=== PATIENT | male | born 1990 | race Caucasian/White ===

== ENCOUNTER 2022-08-06 20:01 | Emergency (ER) | payer BC, MEDICAID, SELFPAY ==
[2022-08-06 20:27] VITALS: PULSE 102; RESP 18; TEMP 36.4; O2SAT 97; BMI 21.4
--- NOTE | 2022-08-06 21:15 | CTR_ITS ---
PROCEDURE INFORMATION: Exam: CT Abdomen And Pelvis With Contrast Exam date and time: 08/06/2022 9:30 PM Age: 32 years old Clinical indication: Injury or trauma; Other: Blunt trauma; Prior surgery; Surgery type: Appy; Patient HX: Sustained blow to llq from a lead pipe. TECHNIQUE: Imaging protocol: Computed tomography of the abdomen and pelvis with contrast. Radiation optimization: All CT scans at this facility use at least one of these dose optimization techniques: automated exposure control; mA and/or kV adjustment per patient size (includes targeted exams where dose is matched to clinical indication); or iterative reconstruction. Contrast material: OMNI 350; Contrast volume: 100 ml; Contrast route: INTRAVENOUS (IV); Other protocol: This patient has received 0 known CTs and 0 known cardiac nuclear medicine studies in the 12 months prior to the current study. COMPARISON: No relevant prior studies available. RADIATION DOSE METRICS: Total DLP (mGy-cm): 356.73 FINDINGS: Lungs: Right lower lobe atelectasis. Liver: Normal. No mass. Gallbladder and bile ducts: Normal. No calcified stones. No ductal dilation. Pancreas: Normal. No ductal dilation. Spleen: Normal. No splenomegaly. Adrenal glands: Normal. No mass. Kidneys and ureters: Left kidney cyst, negative for follow-up advised. Stomach and bowel: Prominent fluid in the small bowel without dilation suggestive of an enteritis. Appendix: No evidence of appendicitis. Intraperitoneal space: Unremarkable. No free air. No significant fluid collection. Vasculature: Unremarkable. No abdominal aortic aneurysm. Lymph nodes: Unremarkable. No enlarged lymph nodes. Urinary bladder: Unremarkable as visualized. Reproductive: Unremarkable as visualized. Bones/joints: Unremarkable. No acute fracture. Soft tissues: Unremarkable. CT/CT abdomen pelvis w con* [id number] IMPRESSION: 1. Negative for traumatic injury to the abdomen or pelvis. 2. Right lower lobe atelectasis. 3. Prominent fluid in the small bowel without dilation suggestive of an enteritis. 4. Left kidney cyst, negative for follow-up advised. COMMENTS: Consistent with the [employer]'s Incidental Findings Committee white paper (J Am Emigdio Radiol 2018): Any incidental renal lesion less than 1 cm or classified as too small to characterize, or any incidental cystic renal lesion characterized as simple-appearing, is likely benign. No follow-up imaging is recommended for these lesions per consensus recommendations based on imaging criteria.
[2022-08-06] MEDS: morphine 4 mg/mL SDV 1 mL IVP (21:24)
[2022-08-06] MEDS: ondansetron 2 mg/ML SDV 2 mL 4 MG IVP (21:24)
--- NOTE | 2022-08-06 21:27 | ED_ITS ---
HPI - Abdominal Pain General: Chief Complaint: Abdominal Pain Stated Complaint: Injury ABD Pain Time Seen by Provider: 08/06/22 20:57 Source: patient Mode of arrival: ambulatory Limitations: no limitations History of Present Illness: 32-year-old male who states that at work today he was struck in the abdomen with a lead pipe around noon he states he had worsening lower abdominal pain very tender to touch states pain is currently an 8 out of 10 denies any vomiting denies any other injuries states is worse with movement with palpation improved with rest. Associated Symptoms: Denies chills, dysuria and fever(s) Review of Systems Const: Denies: fever(s), chills, body aches or change in appetite Eyes: Denies: blurry vision or eye discomfort ENMT: Denies: throat pain or dental pain Card: Denies: chest pain Resp: Denies: dyspnea GI: Reports: abdominal pain : Denies: dysuria Musc: Denies: neck pain or back pain Skin/Breast: Denies: rash Neuro: Denies: headache(s) Psych: Denies: depression Dago/Lymph: Denies: easy bruising All/Imm: Denies: urticaria PFSH ED PFSH: Medical History (Updated 08/06/22 @ 22:02 by Alanna Marie MD) No pertinent past medical history Social History (Updated 08/06/22 @ 21:28 by Alanna Marie MD) Substance/Drug Use: never Physical Exam Const: COMMON NORMALS: no acute distress, patient oriented x3 and healthy jose earing HENMT: COMMON NORMALS: normocephalic and atraumatic HEAD & SCALP: normocephalic and atraumatic Eye: COMMON NORMALS: Equal, round and reactive pupils present and EOMs intact bilaterally PUPIL: Yes Equal, round and reactive pupils present Neck/C-Spine: COMMON NORMALS: full ROM and supple Chest: COMMONS NORMALS: normal inspection of the chest and normal palpation of entire chest wall Resp: COMMON NORMALS: normal respiratory effort, No retractions, No use of accessory muscles and clear to auscultation bilaterally AUSCULTATION: clear to auscultation bilaterally Cardio: COMMON NORMALS: regular rate, regular rhythm and No murmurs present (Cardio) RATE: regular rate RHYTHM: regular rhythm GI: COMMON NORMALS: Normal to inspection, nondistended, normoactive bowel sounds present, Soft to palpation and no masses PALPATION: Yes Soft to palpation OTHER: lower abdominal tenderness Extremity: COMMON NORMALS: normal to inspection and full ROM Neuro: COMMON NORMALS: patient oriented x3, moves all extremities and no focal motor deficits Psych: COMMON NORMALS: mental status grossly normal, Normal thought process present and cooperative THOUGHT PROCESS: Normal thought process present Skin: COMMON NORMALS: no rashes or lesions noted and no wounds GENERAL SKIN EXAM: no rashes or lesions noted Course Vital Signs: Vital signs: Vital Signs Temperature 97.6 F 08/06/22 20:27 Pulse Rate 102 H 08/06/22 20:27 Respiratory Rate 18 08/06/22 20:27 Pulse Oximetry 97 08/06/22 20:27 Oxygen Delivery Me thod 08/06/22 20:27 MDM - Abdominal Pain Medical Decision Making Patient presents here with abdominal wall contusion his CT and blood work are all normal he is well-appearing here and is stable for discharge at this time his follow-up his PCP and return if worsening he understands agrees with plan. Lab Data 08/06/22 21:20 08/06/22 21:20 Labs/Radiology: Radiology Impressions Abdomen/Pelvis CT 08/06/22 21:15 IMPRESSION: 1. Negative for traumatic injury to the abdomen or pelvis. 2. Right lower lobe atelectasis. 3. Prominent fluid in the small bowel without dilation suggestive of an enteritis. 4. Left kidney cyst, negative for follow-up advised. COMMENTS: Consistent with the [employer]'s Incidental Findings Committee white paper (J Am Emigdio Radiol 2018): Any incidental renal lesion less than 1 cm or classified as too small to characterize, or any incidental cystic renal lesion characterized as simple-appearing, is likely benign. No follow-up imaging is recommended for these lesions per consensus recommendations based on imaging criteria. Laboratory Results WBC 7.0 10^3/uL (4.0-10.0) 08/06/22 21:20 RBC 4.53 10^6/uL (4.1-5.3) 08/06/22 21:20 Hgb 13.7 g/dL (11.7-16.6) 08/06/22 21:20 Hct 40.6 % (42.0-52.0) L 08/06/22 21:20 MCV 89.6 fl (80-94) 08/06/22 21:20 MCH 30.2 pg (28.0-34.0) 08/06/22 21:20 MCHC 33.7 g/dL (30.0-36.0) 08/06/22 21:20 RDW 12.2 % (12.1-15.1) 08/06/22 21:20 Plt Count 219 10^3/cmm (130-400) 08/06/22 21:20 MPV 9.6 fL (7.4-10.4) 08/06/22 21:20 Neut % (Auto) 54.5 % 08/06/22 21:20 Lymph % (Auto) 31.7 % 08/06/22 21:20 [place] % (Auto) 10.5 % 08/06/22 21:20 Eos % (Auto) 2.6 % 08/06/22 21:20 Baso % (Auto) 0.6 % 08/06/22 21:20 Neut # (Auto) 3.80 10^3/uL (1.8-7.7) 08/06/22 21:20 Lymph # (Auto) 2.2 10^3/uL (0.8-4.8) 08/06/22 21:20 [place] # (Auto) 0.7 10^3/uL (0.2-0.9) 08/06/22 21:20 Eos # (Auto) 0.2 10^3/uL (0.0-0.8) 08/06/22 21:20 Baso # (Auto) 0.0 10^3/uL (0.0-0.1) 08/06/22 21:20 Nucleated RBC % (auto) 0 % 08/06/22 21:20 Nucleated RBCs # 0.0 /100WBC 08/06/22 21:20 Sodium 141 mmol/L (136-145) 08/06/22 21:20 Potassium 3.3 mmol/L (3.5-5.1) L 08/06/22 21:20 Chloride 105 mmol/L (98-107) 08/06/22 21:20 Carbon Dioxide 25 mmol/L (22-29) 08/06/22 21:20 Anion Gap 14.3 (5-19) 08/06/22 21:20 BUN 9 mg/dL (6-20) 08/06/22 21:20 Creatinine 0.8 mg/dL (0.7-1.2) 08/06/22 21:20 GFR Calculation 113.5 mL/min (90-130) 08/06/22 21:20 Glucose 95 mg/dL (65-115) 08/06/22 21:20 Calculated Osmolality 290 mOsm/kg (285-295) 08/06/22 21:20 Calcium 8.9 mg/dL (8.5-10.5) 08/06/22 21:20 Total Bilirubin 0.3 mg/dL (0.15-1.2) 08/06/22 21:20 AST 15 U/L (0-40) 08/06/22 21:20 ALT 9 U/L (0-41) 08/06/22 21:20 Alkaline Phosphatase 83 U/L (40-130) 08/06/22 21:20 Total Protein 6.6 g/dL (6.6-8.7) 08/06/22 21:20 Albumin 4.4 g/dL (3.5-5.2) 08/06/22 21:20 Globulin 2.2 g/dL (1.3-4.6) 08/06/22 21:20 Lipase 23 U/L (13-60) 08/06/22 21:20 Discharge Plan Discharge Patient Disposition: Home Clinical Impression: Abdominal wall contusion Prescriptions: New Naprosyn 500 mg tablet 500 mg PO BID PRN (Reason: pain) Qty: 20 0RF Discharge Orders: Discharge ED (Routine); Ordered 08/06/22 Ordered By: Alanna Marie Discharge Diet: Advance as tolerated Discharge Activity: Resume usual activity Patient Instructions: Contusion in Adults (ED), Opioid Safety Coding Level of Care Code ED Advanced Practice Rn for Destin Romero
[2022-08-06 21:31] LABS: Basophils % 0.6 %; Eosinophils # 0.2 10^3/uL (0.0-0.8); Eosinophils % 2.6 %; Hematocrit 40.6 % (42.0-52.0); Hemoglobin 13.7 g/dL (11.7-16.6); Lymphocytes # 2.2 10^3/uL (0.8-4.8); Lymphocytes % 31.7 %; Mean Corpuscular HGB Conc 33.7 g/dL (30.0-36.0); Mean Corpuscular Hemoglobin 30.2 pg (28.0-34.0); Mean Corpuscular Volume 89.6 fl (80-94); Mean Platelet Volume 9.6 fL (7.4-10.4); Monocytes # 0.7 10^3/uL (0.2-0.9); Monocytes % 10.5 %; Neutrophils % 54.5 %; Nucleated Red Blood Cells % 0 %; Platelet Count 219 10^3/cmm (130-400); Red Blood Count 4.53 10^6/uL (4.1-5.3); Red Cell Distribution Width 12.2 % (12.1-15.1)
[2022-08-06] MEDS: iohexol 350 mg/mL 500 mL Btl (per mL) IV (21:31)
[2022-08-06 21:50] LABS: Alanine Aminotransferase 9 U/L (0-41); Albumin Level 4.4 g/dL (3.5-5.2); Alkaline Phosphatase 83 U/L (40-130); Anion Gap 14.3 (5-19); Aspartate Amino Transferase 15 U/L (0-40); Blood Urea Nitrogen 9 mg/dL (6-20); Calcium 8.9 mg/dL (8.5-10.5); Carbon Dioxide 25 mmol/L (22-29); Chloride 105 mmol/L (98-107); Creatinine Clr Calc Pharmacy 131.2522; Globulin 2.2 g/dL (1.3-4.6); Glomerular Filtration Rate 113.5 mL/min (90-130); Glucose 95 mg/dL (65-115); Lipase 23 U/L (13-60); Osmolality Calculated 290 mOsm/kg (285-295); Potassium 3.3 mmol/L (3.5-5.1); Sodium 141 mmol/L (136-145); Total Bilirubin 0.3 mg/dL (0.15-1.2); Total Protein 6.6 g/dL (6.6-8.7)
== END 2022-08-06 22:09 | disposition home or self-care (01) ==
PROVIDERS: Emergency Provider Emergency Medicine
DX: S30.1XXA Contusion of abdominal wall, initial encounter (principal); W22.8XXA Striking against or struck by other objects, initial encounter
CPT/HCPCS: 74177; 80053; 83690; 85025; 96374; 96375; 99285; J2270; J2405; Q9967